=== PATIENT | male | born 1995 | race Caucasian/White ===

== ENCOUNTER 2024-07-18 21:21 | Emergency (ER) | payer OTHER, SELFPAY ==
[2024-07-18 21:27] VITALS: BP 139/102
[2024-07-18 22:29] VITALS: BMI 28.5
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
[2024-07-18] MEDS: SILVADENE 1 APPLIC TOPICAL (23:16)
== END 2024-07-18 23:17 | disposition home or self-care (01) ==
LOC: EMR 21:21
PROVIDERS: EMERGENCY PHYSICIAN Emergency Medicine
DX: L55.1 Sunburn of second degree (principal)
CPT/HCPCS: 99282